=== PATIENT | female | born 1985 | race Caucasian/White ===

== ENCOUNTER 2024-08-03 16:04 | Inpatient (IN) | payer SELFPAY ==
[~2024-08-03 16:04] MED LIST: Iopamidol 300 61% 100 ML VIAL FS ONE
[2024-08-03] MEDS ORDERED: Ondansetron PF 4 MG/2 ML Vial ONE (16:54)
[2024-08-03] MEDS ORDERED: Morphine 4 MG/ML VIAL ONE ×2 (16:54→23:56)
[2024-08-03 17:28] LABS: #Basophils 0.01 10x3/uL (0.0-0.2); #Eosinphils 0.06 10x3/uL (0.0-0.5); #Neutrophils 14.63 10x3/uL (1.5-8.4); %Basophils 0.1 % (0.0-2.0); %Eosinophils 0.4 % (0.0-6.0); %Lymphocytes 3.6 % (18.0-47.0); %Monocytes 4.4 % (0.0-10.0); %Neutrophils 91.1 % (40.0-75.0); Hematocrit 41.7 % (34.9-44.5); Hemoglobin 13.8 g/dL (12.0-15.5); Mean Corpuscular HGB CONC 33.1 g/dL (32.0-36.0); Mean Corpuscular Hemoglobin 30.3 pg (27.0-33.0); Mean Corpuscular Volume 91.6 fL (81.6-98.3); Platelet Count 286 10x3/uL (150-450); RBC Distribution Width 12.2 % (11.5-14.5); Red Blood Cell (RBC) Count 4.55 10x6/uL (3.90-5.03); White Blood Cell (WBC) Count 16.1 10x3/uL (3.5-10.5)
[2024-08-03 17:38] LABS: ALT (SGPT) 8 U/L (8-55); AST (SGOT) 11 U/L (5-34); Albumin 3.2 g/dL (3.5-5.0); Alkaline Phosphatase 81 U/L (40-110); Anion Gap 14 mmol/L (10-20); BUN (Urea Nitrogen) 11 mg/dL (7.0-18.7); Bilirubin, Total 0.7 mg/dL (0.2-1.2); Calc. Creatinine Clearance 0 mL/min (70-130); Calcium 9.8 mg/dL (7.8-10.44); Carbon Dioxide 25 mmol/L (22-29); Chloride 98 mmol/L (98-107); Estimated GFR 107; Globulin 4.6 g/dL (2.4-3.5); Glucose 108 mg/dL (70-105); Potassium 3.1 mmol/L (3.5-5.1); Protein, Total 7.8 g/dL (6.0-8.3); Sodium 134 mmol/L (136-145)
[2024-08-03 17:56] LABS: Lipase Less than 4 U/L (8-78)
[2024-08-03 19:19] LABS: Bilirubin Neg (Negative); Blood, Urine 50 (Negative); Clarity Clear (Clear); Glucose, Urine (Dipstick) Normal (Negative); Ketone, Urine 150 mg/dL (Negative); Leukocyte 25 (Negative); Nitrite Negative (Negative); Protein, Urine (Dipstick) 100 mg/dl (Neg-Trace); Specific Gravity, Urine 1.015 (1.005-1.030)
[2024-08-03 19:20] LABS: Pregnancy Test - Urine (BHCG) Negative (Negative); Pregu Control Background? CLEAR/WHITE (CLR/WHITE); Pregu Control Bar Appear? YES (CONTROL BAR); Specific Gravity 1.015 (1.002-1.036)
[2024-08-03] MEDS ORDERED: Piperacillin/Tazobactam 4.5 GM VIAL ONE (20:30)
[2024-08-03 20:52] LABS: Bacteria/HPF None Seen HPF (None Seen); CAUTI Indications for Culture Pelvic or flank pain; RBC/HPF 0-3 HPF (0-3); Squamous Epithelial 0-3 HPF (0-3); Urine Culture Reflex No No; WBC/HPF 0-3 HPF (0-3)
[2024-08-03] MEDS ORDERED: Communication Order-Pharmacy FS PRN (22:36)
[2024-08-03] MEDS ORDERED: Ondansetron ODT 4 MG TAB PO PRN (22:41)
[2024-08-03 23:04] LABS: Magnesium 1.8 mg/dL (1.6-2.6)
[2024-08-03] MEDS ORDERED: Ketorolac Tromethamine 30 MG (1 mL) VIAL IVP PRN (23:05)
[2024-08-03] MEDS ORDERED: Potassium Chloride 20 MEQ (100 mL) BAG ONE (23:39)
[2024-08-03] MEDS: Nicotine 14 MG PATCH TD SCH (23:55)
[2024-08-03] MEDS: Potassium Chloride 20 MEQ in Premix 1 BAG IVPB SCH (23:56)
[2024-08-03] MEDS: Sodium Chloride 0.9% 1,000 ML IV SCH (23:56)
[2024-08-03] MEDS: Morphine 4 MG/ML VIAL SLOW IVP PRN (23:57)
[2024-08-04] MEDS ORDERED: Potassium Chloride 20 MEQ (100 mL) BAG ONE (01:02)
[2024-08-04] MEDS ORDERED: Piperacillin/Tazobactam 3.375 GM VIAL ONE ×3 (02:17→11:13)
[2024-08-04] MEDS: Piperacillin/Tazobactam 3.375 GM in Sodium Chloride 0.9% 100 ML IVPB SCH ×2 (02:27→20:54)
[2024-08-04] MEDS ORDERED: Morphine 4 MG/ML VIAL ONE ×2 (04:05→08:03)
[2024-08-04 04:31] LABS: #Basophils 0.02 10x3/uL (0.0-0.2); #Eosinphils 0.17 10x3/uL (0.0-0.5); #Monocytes 0.88 10x3/uL (0.0-1.1); #Neutrophils 12.59 10x3/uL (1.5-8.4); %Basophils 0.1 % (0.0-2.0); %Eosinophils 1.2 % (0.0-6.0); %Lymphocytes 6.7 % (18.0-47.0); %Neutrophils 85.6 % (40.0-75.0); Hemoglobin 11.7 g/dL (12.0-15.5); Mean Corpuscular HGB CONC 33.4 g/dL (32.0-36.0); Mean Corpuscular Hemoglobin 31.2 pg (27.0-33.0); Mean Corpuscular Volume 93.3 fL (81.6-98.3); Mean Platelet Volume 9.8 fL (7.4-10.4); Platelet Count 239 10x3/uL (150-450); RBC Distribution Width 12.3 % (11.5-14.5); Red Blood Cell (RBC) Count 3.75 10x6/uL (3.90-5.03); White Blood Cell (WBC) Count 14.7 10x3/uL (3.5-10.5)
[2024-08-04 05:00] LABS: Anion Gap 15 mmol/L (10-20); BUN (Urea Nitrogen) 6 mg/dL (7.0-18.7); Calc. Creatinine Clearance 0 mL/min (70-130); Calcium 8.2 mg/dL (7.8-10.44); Carbon Dioxide 20 mmol/L (22-29); Chloride 106 mmol/L (98-107); Estimated GFR 116; Glucose 95 mg/dL (70-105); Potassium 3.7 mmol/L (3.5-5.1); Sodium 137 mmol/L (136-145)
[2024-08-04] MEDS ORDERED: NS 0.9% w/ 20 MEQ KCL 1,000 ML ONE (05:01)
[2024-08-04] MEDS: NS 0.9% w/ 20 MEQ KCL 1,000 ML/1,000 ML BAG IV SCH (05:09)
[2024-08-04] MEDS ORDERED: Ondansetron PF 4 MG/2 ML Vial ONE (08:19)
[2024-08-04] MEDS: Ondansetron PF 4 MG/2 ML Vial IVP PRN (08:30)
[2024-08-04] MEDS ORDERED: Electrolyte Replacement Protocol 1 EACH FS SCH (10:30)
[2024-08-04] MEDS ORDERED: Magnesium 2 GM/50 ML BAG (IN WATER) ONE (11:13)
[2024-08-04] MEDS: Magnesium 2 GM/50 ML(in water) 2 GM in Premix 1 BAG IVPB SCH (11:28)
[2024-08-04] MEDS: Enoxaparin 40 MG (0.4 mL) SYRINGE SC SCH (13:44)
[2024-08-04] MEDS ORDERED: Piperacillin/Tazobactam 4.5 GM in Sodium Chloride 0.9% 100 ML IVPB SCH (14:00)
[2024-08-04 14:18] VITALS: BMI 28.9
[2024-08-04] MEDS: Lactated Ringer's 1,000 ML IV SCH ×2 (16:25→17:38)
[2024-08-04] MEDS: Acetaminophen 500 MG TAB PO SCH (16:57)
[2024-08-04] MEDS: Ketorolac Tromethamine 30 MG (1 mL) VIAL IVP SCH (16:59)
[2024-08-05 04:32] LABS: #Basophils 0.01 10x3/uL (0.0-0.2); #Eosinphils 0.14 10x3/uL (0.0-0.5); #Monocytes 0.09 10x3/uL (0.0-1.1); #Neutrophils 5.73 10x3/uL (1.5-8.4); %Basophils 0.2 % (0.0-2.0); %Eosinophils 2.2 % (0.0-6.0); %Lymphocytes 7.7 % (18.0-47.0); %Monocytes 1.4 % (0.0-10.0); %Neutrophils 88.3 % (40.0-75.0); Hematocrit 32.9 % (34.9-44.5); Hemoglobin 11.1 g/dL (12.0-15.5); Mean Corpuscular HGB CONC 33.7 g/dL (32.0-36.0); Mean Corpuscular Hemoglobin 31.5 pg (27.0-33.0); Mean Corpuscular Volume 93.5 fL (81.6-98.3); Mean Platelet Volume 9.7 fL (7.4-10.4); Platelet Count 236 10x3/uL (150-450); RBC Distribution Width 12.5 % (11.5-14.5); Red Blood Cell (RBC) Count 3.52 10x6/uL (3.90-5.03); White Blood Cell (WBC) Count 6.5 10x3/uL (3.5-10.5)
[2024-08-05 04:38] LABS: Anion Gap 15 mmol/L (10-20); BUN (Urea Nitrogen) 4 mg/dL (7.0-18.7); Calc. Creatinine Clearance 167 mL/min (70-130); Calcium 8.6 mg/dL (7.8-10.44); Carbon Dioxide 22 mmol/L (22-29); Chloride 104 mmol/L (98-107); Estimated GFR 117; Glucose 91 mg/dL (70-105); Magnesium 1.7 mg/dL (1.6-2.6); Potassium 3.3 mmol/L (3.5-5.1); Sodium 138 mmol/L (136-145)
[2024-08-05] MEDS: Potassium Chloride 20 MEQ TAB PO SCH (08:12)
[2024-08-05] MEDS: Magnesium 2 GM/50 ML(in water) 2 GM in Premix 1 BAG IVPB SCH (08:13)
[2024-08-05] MEDS: traMADol HCl 50 MG TAB PO PRN (09:38)
[2024-08-05] MEDS: hydrALAZINE 20 MG/ML VIAL SLOW IVP PRN (18:17)
[2024-08-05] MEDS: Amlodipine 5 MG TAB PO SCH (21:56)
[2024-08-06 04:10] LABS: #Basophils 0.02 10x3/uL (0.0-0.2); #Eosinphils 0.13 10x3/uL (0.0-0.5); #Monocytes 0.53 10x3/uL (0.0-1.1); #Neutrophils 11.27 10x3/uL (1.5-8.4); %Basophils 0.2 % (0.0-2.0); %Monocytes 4.1 % (0.0-10.0); %Neutrophils 87.2 % (40.0-75.0); Hematocrit 35.9 % (34.9-44.5); Hemoglobin 12.3 g/dL (12.0-15.5); Mean Corpuscular HGB CONC 34.3 g/dL (32.0-36.0); Mean Corpuscular Volume 90.4 fL (81.6-98.3); Mean Platelet Volume 9.6 fL (7.4-10.4); Platelet Count 337 10x3/uL (150-450); RBC Distribution Width 12.3 % (11.5-14.5); Red Blood Cell (RBC) Count 3.97 10x6/uL (3.90-5.03); White Blood Cell (WBC) Count 12.9 10x3/uL (3.5-10.5)
[2024-08-06 04:17] LABS: Anion Gap 13 mmol/L (10-20); BUN (Urea Nitrogen) 4 mg/dL (7.0-18.7); Calc. Creatinine Clearance 172 mL/min (70-130); Carbon Dioxide 24 mmol/L (22-29); Chloride 101 mmol/L (98-107); Estimated GFR 118; Glucose 95 mg/dL (70-105); Potassium 3.6 mmol/L (3.5-5.1); Sodium 134 mmol/L (136-145)
[2024-08-06] MEDS: Metoprolol Tartrate 25 MG TAB PO SCH (09:27)
[2024-08-06] MEDS ORDERED: Iopamidol 300 61% 100 ML VIAL FS ONE (11:05)
[2024-08-06] MEDS ORDERED: PROPOFOL 20 ML ONE (11:54)
[2024-08-06] MEDS ORDERED: Rocuronium Bromide 10 MG/ML (10ML VIAL) ONE (11:54)
[2024-08-06] MEDS ORDERED: Midazolam HCl 2 mg/2 ml Vial ONE (11:54)
[2024-08-06] MEDS ORDERED: Fentanyl 250 MCG/5 ML VIAL ONE (11:54)
[2024-08-06] MEDS ORDERED: Dexamethasone 20 MG/5 ML VIAL ONE (13:22)
[2024-08-06] MEDS ORDERED: Dexmedetomidine 200 MCG/2 ML VIAL ONE (13:40)
[2024-08-06] MEDS ORDERED: fentaNYL 50 mcg/mL 1 mL Vial ONE ×4 (14:44→16:29)
[2024-08-06] MEDS ORDERED: PHENYLEPHRINE-NS 100 MCG/ML 10 ML SYRINGE ONE (14:54)
[2024-08-06] MEDS ORDERED: Glycopyrrolate 0.2 MG/ML 5 ML SYRINGE ONE (15:18)
[2024-08-06] MEDS ORDERED: diphenhydrAMINE 25 MG CAP PO PRN (16:15)
[2024-08-06] MEDS ORDERED: diphenhydrAMINE 50 MG/ML VIAL IM/IV PRN (16:15)
[2024-08-06] MEDS ORDERED: Promethazine HCl 25 MG/ML VIAL IM PRN (16:15)
[2024-08-06] MEDS ORDERED: Naloxone HCl 0.4 mg/ml Vial IV PRN (16:15)
[2024-08-06] MEDS ORDERED: Zolpidem Tartrate 5 MG TAB PO PRN (16:15)
[2024-08-06] MEDS: Ketorolac Tromethamine 30 MG (1 mL) VIAL IVP SCH (18:49)
[2024-08-06] MEDS: metroNIDAZOLE 500 MG in Premix 1 BAG IVPB SCH ×2 (18:50→20:13)
[2024-08-06] MEDS: cefTRIAXone\\ROCEPHIN 2 GM in Sodium Chloride 0.9% 100 ML IVPB SCH ×2 (20:13→20:30)
[2024-08-06] MEDS: Piperacillin/Tazobactam 3.375 GM in Sodium Chloride 0.9% 100 ML IVPB SCH (22:52)
[2024-08-06] MEDS: Scopolamine 1 mg/72 hour Patch TD SCH (23:36)
[2024-08-06] MEDS: Lactated Ringer's 1,000 ML IV SCH (23:37)
[2024-08-07] MEDS: Scopolamine 1 mg/72 hour Patch TD SCH (00:32)
[2024-08-07] MEDS: FENTANYL 500 MCG/10 ML VIAL 1,000 MCG in Sodium Chloride 0.9% 30 ML IV PRN (05:39)
[2024-08-07 06:17] LABS: Hematocrit 32.1 % (34.9-44.5); Hemoglobin 10.9 g/dL (12.0-15.5); Mean Corpuscular Volume 91.2 fL (81.6-98.3); Mean Platelet Volume 9.8 fL (7.4-10.4); Platelet Count 382 10x3/uL (150-450); RBC Distribution Width 12.6 % (11.5-14.5); Red Blood Cell (RBC) Count 3.52 10x6/uL (3.90-5.03); White Blood Cell (WBC) Count 14.5 10x3/uL (3.5-10.5)
[2024-08-07 06:20] LABS: Anion Gap 15 mmol/L (10-20); BUN (Urea Nitrogen) 4 mg/dL (7.0-18.7); Calc. Creatinine Clearance 178 mL/min (70-130); Calcium 8.5 mg/dL (7.8-10.44); Carbon Dioxide 22 mmol/L (22-29); Chloride 101 mmol/L (98-107); Estimated GFR 119; Glucose 111 mg/dL (70-105); Potassium 3.4 mmol/L (3.5-5.1); Sodium 135 mmol/L (136-145)
[2024-08-07 06:52] LABS: Band 55 % (5-11); Lymphocytes 2 % (21-51); Monocytes 5 % (0-10); Neutrophil 38 % (42-75)
[2024-08-07 06:53] LABS: Platelet Adequacy Comment Appears Adequate
[2024-08-07 06:54] LABS: MDiff Complete? YES; RBC Morph Comment Within Normal Limits; Reflex for Review?? YES
[2024-08-07 06:55] LABS: Dohle Bodies SLIGHT
[2024-08-07] MEDS ORDERED: Lactated Ringer's 1,000 ML IV SCH (08:38)
[2024-08-07] MEDS ORDERED: Phenol 177 ML BOT PO PRN (09:18)
[2024-08-07] MEDS: Potassium Chloride 20 MEQ TAB PO SCH (09:28)
[2024-08-07] MEDS: Pantoprazole DR 40 MG TAB PO SCH (09:41)
[2024-08-07] MEDS: Calcium Carbonate 500 MG ChewTAB PO PRN (09:41)
[2024-08-07] MEDS: Potassium Chloride 20 MEQ, Admixture Fee 1 EACH in Lactated Ringer's 1,000 ML IV SCH (10:47)
[2024-08-07] MEDS: Ondansetron PF 4 MG/2 ML Vial IVP PRN (12:14)
[2024-08-08 05:32] LABS: #Basophils 0.03 10x3/uL (0.0-0.2); #Eosinphils 0.04 10x3/uL (0.0-0.5); #Monocytes 0.82 10x3/uL (0.0-1.1); #Neutrophils 9.66 10x3/uL (1.5-8.4); %Basophils 0.2 % (0.0-2.0); %Eosinophils 0.3 % (0.0-6.0); %Lymphocytes 13.3 % (18.0-47.0); %Monocytes 6.7 % (0.0-10.0); %Neutrophils 78.6 % (40.0-75.0); Hematocrit 31.1 % (34.9-44.5); Hemoglobin 10.2 g/dL (12.0-15.5); Mean Corpuscular HGB CONC 32.8 g/dL (32.0-36.0); Mean Corpuscular Hemoglobin 30.4 pg (27.0-33.0); Mean Corpuscular Volume 92.8 fL (81.6-98.3); Mean Platelet Volume 9.8 fL (7.4-10.4); Platelet Count 387 10x3/uL (150-450); RBC Distribution Width 12.7 % (11.5-14.5); Red Blood Cell (RBC) Count 3.35 10x6/uL (3.90-5.03); White Blood Cell (WBC) Count 12.3 10x3/uL (3.5-10.5)
[2024-08-08 05:44] LABS: Anion Gap 14 mmol/L (10-20); BUN (Urea Nitrogen) 9 mg/dL (7.0-18.7); Calc. Creatinine Clearance 144 mL/min (70-130); Calcium 9.1 mg/dL (7.8-10.44); Carbon Dioxide 25 mmol/L (22-29); Chloride 103 mmol/L (98-107); Estimated GFR 109; Glucose 101 mg/dL (70-105); Magnesium 1.9 mg/dL (1.6-2.6); Sodium 138 mmol/L (136-145)
[2024-08-08] MEDS: Pantoprazole DR 40 MG TAB PO SCH (09:58)
[2024-08-08] MEDS: Magnesium 2 GM/50 ML(in water) 2 GM in Premix 1 BAG IVPB SCH (12:56)
[2024-08-08] MEDS: Ketorolac Tromethamine 30 MG (1 mL) VIAL IVP SCH (17:59)
[2024-08-09 10:06] VITALS: BMI 28.9
[2024-08-09] MEDS ORDERED: Ibuprofen 200 MG TAB PO PRN (12:00)
[2024-08-09] MEDS: cefTRIAXone\\ROCEPHIN 2 GM in Sodium Chloride 0.9% 100 ML IVPB SCH (12:50)
[2024-08-10] MEDS: traMADol HCl 50 MG TAB PO PRN (00:46)
[2024-08-10 16:33] VITALS: BP 130/87; TEMP 98.5
== END 2024-08-10 15:55 | disposition home or self-care (01) | DRG 854 ==
LOC: CSHERS 16:04 → CSHERHOLD 21:17 → CSHTELE 08-04 13:32
PROVIDERS: ADMIT Family Medicine; ATTEND Internal Medicine
PROC: 3E03329 Introduction of Other Anti-infective into Peripheral Vein, Percutaneous Approach (ICD-10-PCS; 2024-08-04)
PROC: 0D1B0Z4 Bypass Ileum to Cutaneous, Open Approach (ICD-10-PCS; 2024-08-06)
PROC: 0DBN0ZZ Excision of Sigmoid Colon, Open Approach (ICD-10-PCS; 2024-08-06)
PROC: 3E0M05Z Introduction of Adhesion Barrier into Peritoneal Cavity, Open Approach (ICD-10-PCS; 2024-08-06)
PROC: 02HV33Z Insertion of Infusion Device into Superior Vena Cava, Percutaneous Approach (ICD-10-PCS; principal; 2024-08-09)
DX: A41.9 Sepsis, unspecified organism (principal); E87.1 Hypo-osmolality and hyponatremia; K57.20 Diverticulitis of large intestine with perforation and abscess without bleeding; E03.9 Hypothyroidism, unspecified; R65.20 Severe sepsis without septic shock; E83.42 Hypomagnesemia; E87.6 Hypokalemia; Z86.39 Personal history of other endocrine, nutritional and metabolic disease; Z79.899 Other long term (current) drug therapy; Z98.890 Other specified postprocedural states
CPT/HCPCS: 36415; 36569; 71045; 74177; 76937; 77001; 80048; 80053; 81001; 81025; 83605; 83690; 83735; 84443; 85025; 85060; 87040; 87077; 87149; 88307; 93306; 96374; 96375; 97139; A4649; C1713; C1751; C1889; J0360; J0696; J1100; J1650; J1885; J2250; J2272; J2405; J2543; J2704; J3010; J3475; J3480; J7030; J7120; Q9967